=== PATIENT | female | born 1960 | race American Indian/Alaskan Native ===

== ENCOUNTER 2019-11-30 16:45 | Inpatient (IN) | payer MEDICARE ==
--- NOTE | 2019-11-30 16:52 | Emergency Department Report ---
ED Neuro Deficit HPI - General Chief Complaint: Neuro Symptoms/Deficit Stated Complaint: POSS CVA Time Seen by Provider: 11/30/19 16:48 Source: EMS Mode of arrival: Stretcher Limitations: Physical Limitation - Related Data Allergies/Adverse Reactions: Allergies Allergy/AdvReac Type Severity Reaction Status Date / Time No Known Allergies Allergy Unverified 11/30/19 16:46 ED Review of Systems ROS: Stated complaint: POSS CVA Other details as noted in HPI ED Past Medical Hx - Past Medical History Previous Medical History?: Yes Hx Hypertension: Yes Hx CVA: Yes - Surgical History Past Surgical History?: Yes Additional Surgical History: Brain surgery - Social History Smoking Status: Never Smoker ED Neuro Physical Exam - General Limitations: Physical Limitation Critical care attestation.: If time is entered above; I have spent that time in minutes in the direct care of this critically ill patient, excluding procedure time. ED Disposition Condition: Stable
--- NOTE | 2019-11-30 17:01 | Consultation ---
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 Unclear LKW as she says she was normal last night, but she is aphasic, and EMS says it was 1500 per family. New deficits reportedly left sided. She has large left frontoparietal stroke which appears chronic, as well as a right frontal lobe stroke. Differential could include recrudescence of prior stroke. seizure or new stroke Given unclear timing of onset, conflicting report from patient vs family will forego tPA and obtain CTA head and neck to rule out LVO, as she does have history of peralta peralta which could cause bilateral ischemia Metrics: Last Known Well: Unknown [facility] Notification Time: 11/30/2019 16:37:40 Arrival Time: 11/30/2019 16:45:00 Stamp Time: 11/30/2019 16:38:15 Time First Login Attempt: 11/30/2019 16:42:15 Video Start Time: 11/30/2019 16:44:27 Symptoms: aphasia NIHSS Start Assessment Time: 11/30/2019 16:56:54 Patient is not a candidate for tPA. Video End Time: 11/30/2019 17:06:32 CT head showed no acute hemorrhage or acute core infarct. Lower Likelihood of Large Vessel Occlusion but Following Stat Studies are Recommended CTA Head and Neck. ED Physician notified of diagnostic impression and management plan on 11/30/2019 17:30:26 Our recommendations are outlined below. Recommendations: Activate Stroke Protocol Admission/Order Set Stroke/Telemetry Floor Neuro Checks Bedside Swallow Eval DVT Prophylaxis IV Fluids, Normal Saline Head of Bed Below 30 Degrees Euglycemia and Avoid Hyperthermia (PRN Acetaminophen) Antiplatelet Therapy Recommended No tPA given ? timing Obtain CTA head and neck to rule out LVO Sign Out: Discussed with Emergency Department Provider History of Present Illness: Patient is a 59 year old Female. Patient was brought by EMS for symptoms of aphasia hx Peralta Peralta with prior stroke on aspirin and residual aphasia/right sided deficits, who presents per EMS last known well at 1500 per family.. She cannot tell me her deficits but says she was last normal "last night" and cannot say what her new problems are. She says her speech is chronic. She visibly has some left facial droop and left leg weakness which are reportedly new. She denies being on blood thinners but history unreliable as she is aphasic and no family present CT head showed no acute hemorrhage or acute core infarct. There is no history of hemorrhagic complications or intracranial hemorrhage. There is no history of Recent Anticoagulants. There is no history of recent major surgery. There is no history of recent stroke. Examination: 1A: Level of Consciousness - Alert; keenly responsive + 0 1B: Ask Month and Age - Both Questions Right + 0 1C: Blink Eyes & Squeeze Hands - Performs Both Tasks + 0 2: Test Horizontal Extraocular Movements - Normal + 0 3: Test Visual Mack - No Visual Loss + 0 4: Test Facial Palsy (Use Grimace if Obtunded) - Partial paralysis (lower face) + 2 5A: Test Left Arm Motor Drift - No Drift for 10 Seconds + 0 5B: Test Right Arm Motor Drift - No Drift for 10 Seconds + 0 6A: Test Left Leg Motor Drift - Drift, hits bed + 2 6B: Test Right Leg Motor Drift - No Drift for 5 Seconds + 0 7: Test Limb Ataxia (FNF/Heel-Schroeder) - No Ataxia + 0 8: Test Sensation - Normal; No sensory loss + 0 9: Test Language/Aphasia - Severe Aphasia: Fragmentary Expression, Inference Needed, Cannot Identify Materials + 2 10: Test Dysarthria - Mild-Moderate Dysarthria: Slurring but can be understood + 1 11: Test Extinction/Inattention - No abnormality + 0 NIHSS Score: 7 Patient was informed the Neurology Consult would happen via TeleHealth consult by way of interactive audio and video telecommunications and consented to receiving care in this manner. Due to the immediate potential for life-threatening deterioration due to underlying acute neurologic illness, I spent 35 minutes providing critical care. This time includes time for face to face visit via telemedicine, review of medical records, imaging studies and discussion of findings with providers, the patient and/or family. Dr Isidro Roe [facility] Case [id number] Medications and Allergies Allergies Allergy/AdvReac Type Severity Reaction Status Date / Time No Known Allergies Allergy Unverified 11/30/19 16:46 Home Medications Medication Instructions Recorded Confirmed Last Taken Type Aspirin 81 mg PO DAILY 11/30/19 11/30/19 Unknown History Keppra 1,000 mg PO BID 11/30/19 11/30/19 Unknown History amLODIPine 10 mg PO DAILY 11/30/19 11/30/19 Unknown History
--- NOTE | 2019-11-30 17:24 | Cat Scan Report ---
CT head/brain wo con INDICATION / CLINICAL INFORMATION: 59 years Female; MAIN: CODE STROKE #[id number] RT SIDE FACIAL DROOP LEFT SIDE WEAKNESS HX OF C VA W/SURG.. TECHNIQUE: Routine CT head without contrast. All CT scans at this location are performed using CT dos e reduction for ALARA by means of automated exposure control. COMPARISON: None. FINDINGS: BRAIN / INTRACRANIAL CONTENTS: Multiple areas of branch infarcts seen in the left cerebral hemisphere , predominantly involving the parietal lobe, although some component of frontal lobe involvement is s uggested. There may be minimal involvement in the right frontal lobe as well. It would be difficult t o evaluate for small areas of salo-infarct ischemia without diffusion imaging by MRI. Craniotomy site seen in the left and intraparietal region. Please clinically correlate. Ossification is seen along the dura in the lateral aspect of the middle cranial fossa regions, which should be of no clinical significance. Mild hyperostosis frontalis interna noted as well. Otherwise, no acute hemorrhage, mass effect, midline shift, hydrocephalus, or acute, large territoria l infarct. Mild cerebral atrophy. There are areas of decreased attenuation in the white matter of the cerebral hemispheres. These are n onspecific findings and may be related to microangiopathy (hypertension, diabetes, atherosclerosis), given the patient's age. It might be difficult to evaluate for small areas of ischemia without diffus ion imaging by MRI. CRANIOCERVICAL JUNCTION: No significant abnormality. ORBITS: No significant abnormality of visualized orbits. SINUSES / MASTOIDS: No significant abnormality the visualized paranasal sinuses or mastoid air cells. ADDITIONAL FINDINGS: No significant atherosclerotic disease appreciated. IMPRESSION: 1. No focal mass, hemorrhage, hydrocephalus, or acute, large territorial infarct. 2. Multiple old infarcts identified as described above. It would be difficult to evaluate for small a reas of salo-infarct ischemia without comparison of prior study or diffusion imaging by MRI. Follow-u p as clinically warranted. This exam was performed as part of a code stroke protocol. The exam was completed on 11/30/2019 4:02 P M central standard time. The exam was reviewed at 4:[address] Lucas was notified at 4:19 PM. Signer Name: Isidoro Cole MD, III Signed: 11/30/2019 5:19 PM Workstation Name: [id number]
--- NOTE | 2019-11-30 17:53 | Emergency Department Report ---
ED Neuro Deficit HPI - General Chief Complaint: Neuro Symptoms/Deficit Stated Complaint: POSS CVA Time Seen by Provider: 11/30/19 16:48 Source: EMS Mode of arrival: Stretcher Limitations: Physical Limitation - History of Present Illness Initial Comments: Patient is 59 years old female with history of previous stroke with right sided weakness, history of Moyamoya disease who presents with stroke symptoms. Unclear last unknown time. Patient stated that she was normal last night, however EMS says it was 1500 per family. New deficits reportedly left sided. Upon arrival to the ER patient is alert, oriented x3 no acute distress. Patient has a left lower extremity weakness and dysarthria. Stroke protocol immediately initiated and patient moved to CT for emergent CT brain. Stroke telemetry neurology immediately consulted and patient examined by Dr. Roe. Given the unknown time of onset Dr. Roe stated that patient is not a TPA candidate and advised to do a stat CTA neck and brain. - Related Data Home Medications: Home Medications Medication Instructions Recorded Confirmed Last Taken Aspirin 81 mg PO DAILY 11/30/19 11/30/19 Unknown Keppra 1,000 mg PO BID 11/30/19 11/30/19 Unknown amLODIPine 10 mg PO DAILY 11/30/19 11/30/19 Unknown Allergies/Adverse Reactions: Allergies Allergy/AdvReac Type Severity Reaction Status Date / Time No Known Allergies Allergy Unverified 11/30/19 16:46 ED Review of Systems ROS: Stated complaint: POSS CVA Other details as noted in HPI Comment: All other systems reviewed and negative Constitutional: denies: chills, fever Respiratory: denies: cough, shortness of breath Cardiovascular: denies: chest pain Gastrointestinal: denies: abdominal pain, nausea Musculoskeletal: denies: back pain Neurological: weakness. denies: headache ED Past Medical Hx - Past Medical History Previous Medical History?: Yes Hx Hypertension: Yes Hx CVA: Yes - Surgical History Past Surgical History?: Yes Additional Surgical History: Brain surgery - Social History Smoking Status: Never Smoker - Medications Home Medications: Home Medications Medication Instructions Recorded Confirmed Last Taken Type Aspirin 81 mg PO DAILY 11/30/19 11/30/19 Unknown History Keppra 1,000 mg PO BID 11/30/19 11/30/19 Unknown History amLODIPine 10 mg PO DAILY 11/30/19 11/30/19 Unknown History ED Neuro Physical Exam - General Limitations: Physical Limitation General appearance: alert, in no apparent distress Suspected Stroke: Yes - Head Head exam: Present: atraumatic, normocephalic, normal inspection - Eye Eye exam: Present: normal appearance, PERRL - ENT ENT exam: Present: normal exam, normal orophraynx, mucous membranes moist - Neck Neck exam: Present: normal inspection, full ROM. Absent: tenderness, meningismus, lymphadenopathy, thyromegaly - Respiratory Respiratory exam: Present: normal lung sounds bilaterally - Cardiovascular Cardiovascular Exam: Present: tachycardia - GI/Abdominal GI/Abdominal exam: Present: soft, normal bowel sounds. Absent: distended, tenderness, guarding, rebound, rigid, organomegaly, mass, bruit, pulsatile mass, hernia - Extremities Exam Extremities exam: Present: normal inspection, full ROM, normal capillary refill. Absent: tenderness, pedal edema, calf tenderness - Back Exam Back exam: Present: normal inspection, full ROM. Absent: CVA tenderness (R), CVA tenderness (L) - Neurological Exam Neurological exam: Present: alert, oriented X3, CN II-XII intact - NIHSS Assessment Interval: Baseline 1a. Level of Consciousness: alert/keenly responsive 1b. LOC Questions: answers both correctly 1c. LOC Commands: performs tasks correctly 2. Best Gaze: normal 3. Visual: no visual loss 4. Facial Palsy: minor paralysis 5b. Motor Arm Right: no drift 5a. Motor Arm Left: no drift 6a. Motor Leg Left: drift 6b. Motor Leg Right: no drift 7. Limb Ataxia: absent 8. Sensory: normal 9. Best Language: severe aphasia 10. Dysarthria: mild/moderate dysarthria 11. Extinction/Inattention: no abnormality Total Score: 5 Stroke Severity: Moderate Stroke - Psychiatric Psychiatric exam: Present: normal mood - Skin Skin exam: Present: warm, intact, normal color ED Course Vital Signs 11/30/19 17:20 Temperature 98.2 F Pulse Rate 111 H Respiratory 16 Rate Blood Pressure 133/68 [Left] O2 Sat by Pulse 100 Oximetry - Lab Data Result diagrams: 11/30/19 17:21 11/30/19 17:21 Lab Results 11/30/19 11/30/19 11/30/19 Range/Units 17:21 17:21 17:21 WBC 7.2 (4.5-11.0) K/mm3 RBC 2.45 L (3.65-5.03) M/mm3 Hgb 4.7 L* (10.1-14.3) gm/dl Hct 15.4 L* (30.3-42.9) % MCV 63 L (79-97) fl MCH 19 L (28-32) pg MCHC 30 (30-34) % RDW 26.6 H (13.2-15.2) % Plt Count 455 H (140-440) K/mm3 PT 14.4 (12.2-14.9) Sec. INR 1.11 (0.87-1.13) APTT 28.9 (24.2-36.6) Sec. Thrombin Time (15.1-19.6) Sec. Sodium 136 L (137-145) mmol/L Potassium 3.7 (3.6-5.0) mmol/L Chloride 101.5 (98-107) mmol/L Carbon Dioxide 20 L (22-30) mmol/L Anion Gap 18 mmol/L BUN 15 (7-17) mg/dL Creatinine 0.8 (0.7-1.2) mg/dL Estimated GFR > 60 ml/min BUN/Creatinine Ratio 19 % Glucose 140 H (65-100) mg/dL Calcium 8.7 (8.4-10.2) mg/dL Troponin T 0.013 (0.00-0.029) ng/mL 11/30/19 Range/Units 17:21 WBC (4.5-11.0) K/mm3 RBC (3.65-5.03) M/mm3 Hgb (10.1-14.3) gm/dl Hct (30.3-42.9) % MCV (79-97) fl MCH (28-32) pg MCHC (30-34) % RDW (13.2-15.2) % Plt Count (140-440) K/mm3 PT (12.2-14.9) Sec. INR (0.87-1.13) APTT (24.2-36.6) Sec. Thrombin Time 14.5 L (15.1-19.6) Sec. Sodium (137-145) mmol/L Potassium (3.6-5.0) mmol/L Chloride (98-107) mmol/L Carbon Dioxide (22-30) mmol/L Anion Gap mmol/L BUN (7-17) mg/dL Creatinine (0.7-1.2) mg/dL Estimated GFR ml/min BUN/Creatinine Ratio % Glucose (65-100) mg/dL Calcium (8.4-10.2) mg/dL Troponin T (0.00-0.029) ng/mL - EKG Data -: EKG Interpreted by Me EKG shows normal: sinus rhythm Rate: tachycardia - Radiology Data Radiology results: report reviewed - Medical Decision Making Patient is 59 years old female with history of previous stroke with right sided weakness, history of Moyamoya disease who presents with stroke symptoms. Unclear last unknown time. Patient stated that she was normal last night, however EMS says it was 1500 per family. New deficits reportedly left sided. Upon arrival to the ER patient is alert, oriented x3 no acute distress. Patient has a left lower extremity weakness and dysarthria. Stroke protocol immediately initiated and patient moved to CT for emergent CT brain. Stroke telemetry neurology immediately consulted and patient examined by Dr. Roe. Given the unknown time of onset Dr. Roe stated that patient is not a TPA candidate and advised to do a stat CTA neck and brain. Patient found to have a hemoglobin of 4.5. Patient denied any hematemesis or hematochezia. Rectal exam revealed a positive melena and a positive stool for occult blood. I discussed the patient with Dr. Chava Dobbs, manager service desk. He advised to keep the patient on clear liquid for preparation tomorrow and endoscopy and colonoscopy on Monday. Patient received a 1 units of PRBC. I discussed the patient with Dr. Amezcua, he agreed to admit the patient to medical service for further management. Critical Care Time: Yes Critical care time in (mins) excluding proc time.: 45 Critical care attestation.: If time is entered above; I have spent that time in minutes in the direct care of this critically ill patient, excluding procedure time. ED Disposition Clinical Impression: CVA (cerebral vascular accident), Gastrointestinal bleeding Disposition: OP ADMIT IP TO THIS HOSP Is pt being admited?: Yes Condition: Stable Referrals: PRIMARY CARE, [Primary Care Provider] - 3-5 Days
[2019-11-30 18:00] LABS: BUN/Creatinine Ratio 19; Blood Urea Nitrogen 15 mg/dL (7-17); Calcium 8.7 mg/dL (8.4-10.2); Hemolysis Index 0
[2019-11-30 18:02] LABS: Partial Thromboplastin Time 28.9 Sec. (24.2-36.6)
[2019-11-30 18:10] LABS: INR 1.11 (0.87-1.13)
[2019-11-30 18:11] LABS: Mean Corpuscular HGB Conc 30 % (30-34); Platelet Count 455 K/mm3 (140-440); Red Blood Count 2.45 M/mm3 (3.65-5.03)
[2019-11-30 18:15] LABS: Hematocrit 15.4 % (30.3-42.9); Hemoglobin 4.7 gm/dl (10.1-14.3); Mean Corpuscular Volume 63 fl (79-97); Red Cell Distribution Width 26.6 % (13.2-15.2)
[2019-11-30] MEDS ORDERED: SODIUM CHLORIDE 0.9% 500 ML 500 ML IV ONE (18:23)
--- NOTE | 2019-11-30 18:43 | Cat Scan Report ---
CT angio head INDICATION / CLINICAL INFORMATION: 59 years Female; MAIN: sroke, RT side drooping and LT side weakness, multiple CVA, [id number] 100ml. TECHNIQUE: Thin cut axial images obtained through the head during IV bolus contrast administration. S agittal, coronal, and 3 plane MIP reconstructions performed by the technologist. NASCET type criteria used evaluate stenoses. Automated exposure control utilized for radiation reduction purposes. COMPARISON: None available. FINDINGS: INTERNAL CAROTID ARTERIES: There appears to be narrowing of the distal internal carotid arteries bila terally to near complete occlusion in the bifurcation regions to be consistent with a moyamoya patter n or perhaps vasculitis. 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 Note, the proximal and mid basilar artery persists, but is diminutive in size without significant narrowing. There is a focal area of short segment narrowing in the right vertebral artery just distal to the arnaldo gin of the right PICA. DISTAL BRANCHES: There is significant narrowing at the origin of the P1 segment on the left. Blood fl ow to the left [employer] appears to be mildly diminished when compared with the right. As noted above, there is poor visualization of the proximal M1 and A1 segments of both middle and ant erior cerebral arteries, respectively. Areas of narrowing are seen throughout the A1 and M1 segments. There are areas of narrowing seen in more distal MCA trifurcation branches bilaterally, almost having a vasculitic type appearance. There is some degree of narrowing in the proximal A2 segments bilaterally as well. ANEURYSM: None identified. ADDITIONAL FINDINGS: Remainder of the surrounding soft tissues are grossly normal. IMPRESSION: Multiple abnormalities identified as described above. Vasculitic or moyamoya type entity certainly co uld be considered. Diffusion imaging by MRI may best demonstrate areas of ischemia, if needed. Signer Name: Isidoro Cole MD, III Signed: 11/30/2019 6:38 PM Workstation Name: [id number]
--- NOTE | 2019-11-30 18:55 | Cat Scan Report ---
CT angio neck INDICATION / CLINICAL INFORMATION: 59 years Female; MAIN: stroke, RT side drooping and LT side weakness, multiple CVA, [id number] 100ml. TECHNIQUE: Thin cut axial images obtained through the head during IV bolus contrast administration. S agittal, coronal, and 3 plane MIP reconstructions performed by the technologist. NASCET type criteria used evaluate stenoses. All CT scans at this location are performed using CT dose reduction for ALAR A by means of automated exposure control. COMPARISON: None available. FINDINGS: ARCH: Bovine arch configuration noted. CAROTID ARTERIES: There is smooth like narrowing throughout a fairly long segment of the mid to dista l, extracranial right internal carotid artery, which has a vasculitis type appearance. The left inter nal carotid artery is widely patent throughout, as are the common carotid arteries. VERTEBRAL ARTERIES: Codominant vertebral system seen. The vertebral arteries are diminutive in size, which may be developmental and related to the persistent trigeminal artery seen intracranially. There are areas of smooth like narrowing seen in the nondominant left vertebral artery, again raising the question of vasculitis. ADDITIONAL FINDINGS: Small nodules seen in the right thyroid lobe. This findings not significant by s ize criteria. The thyroid gland is mildly enlarged. Mild mucosal thickening seen in the ethmoids. Prominent soft tissue is seen in the roof the nasopharynx, presumably related to reactive adenoidal t issue. Please clinically correlate. [place] tonsils are prominent as well. IMPRESSION: Areas of narrowing identified as described above. Would question arteritis/vasculitis. Signer Name: Isidoro Cole MD, III Signed: 11/30/2019 6:51 PM Workstation Name: [id number]
[2019-11-30 18:59] LABS: Anisocytosis 3+; Dimorphic RBC Yes; Hypochromasia 2+; Schistocytes 1+; Total Cells Counted 100
[2019-11-30] MEDS ORDERED: PANTOPRAZOLE 80 MG in SODIUM CHLORIDE 0.9% 100 ML IV SCH (19:00)
[2019-11-30] MEDS ORDERED: ONDANSETRON 4 MG/2 ML INJ IV PRN (19:19)
[2019-11-30] MEDS ORDERED: MAGNESIUM HYDROXIDE (MOM) ORAL LIQD UDC PO PRN (19:19)
[2019-11-30] MEDS ORDERED: PROMETHAZINE 25 MG RECT SUPP PR PRN (19:19)
[2019-11-30] MEDS ORDERED: ACETAMINOPHEN 325 MG TAB PO PRN (19:19)
[2019-11-30] MEDS ORDERED: METOCLOPRAMIDE 10 MG TAB PO PRN (19:19)
--- NOTE | 2019-11-30 19:19 | History and Physical Report ---
History of Present Illness Chief complaint: I feel we, left side History of present illness: 59 YO Female with Obesity, Moyamoya Disease, HTN, Seizure Disorder, CVA presents to ED for evaluation. Patient is lethargic at the time of exam and provides limited history. Patient history taken from EMS, ED staff and from family members. As per family the patient was in her usual state of health around bedtime at 2100 hrs. overnight. Patient reported left-sided weakness today and the family reports slurred speech. EMS was notified and upon arrival the patient was found to have neurologic deficit. A code stroke was called and the patient was transported to [facility] for further evaluation and care. Patient seen and evaluated in the emergency department. Lab and imaging studies reviewed. Tele-neurology was consulted. Patient was found to have brain findings consistent with moyamoya disease, however patient initiated on stroke protocol and admitted to [facility] for further evaluation and care due to increased risk for neurologic decompensation. Patient was also found to have a severe anemia with hemoglobin around 4. Patient initiated on GI bleed protocol. GI team consulted in ED. Patient initiated on IV PPI therapy and treated with packed red blood cell transfusion. No prior admission for review. All medication listed at the time of admission has been reconciled. No further history obtainable. Patient is lethargic but has positive gag reflex and is able to protect her airway. Past History Past Medical History: seizures, stroke, other (See HPI) Past Surgical History: Other (Brain surgery) Social history: single, lives with family. denies: smoking, alcohol abuse, prescription drug abuse Family history: hypertension Medications and Allergies Allergies Allergy/AdvReac Type Severity Reaction Status Date / Time No Known Allergies Allergy Unverified 11/30/19 16:46 Home Medications Medication Instructions Recorded Confirmed Last Taken Type Aspirin 81 mg PO DAILY 11/30/19 11/30/19 Unknown History Keppra 1,000 mg PO BID 11/30/19 11/30/19 Unknown History amLODIPine 10 mg PO DAILY 11/30/19 11/30/19 Unknown History Active Meds: Active Medications Pantoprazole Sodium 80 mg/ (Sodium Chloride) 100 mls @ 10 mls/hr IV DIRECT THUY Review of Systems ROS unobtainable: due to mental status Exam - Constitutional Vitals: Temp Pulse Resp BP Pulse Ox 98.2 F 111 H 16 133/68 100 11/30/19 17:20 11/30/19 17:20 11/30/19 17:20 11/30/19 17:20 11/30/19 17:20 General appearance: Present: mild distress - EENT Eyes: Present: PERRL (Conjunctival pallor) ENT: hearing intact, clear oral mucosa - Neck Neck: Present: supple, normal ROM - Respiratory Respiratory effort: normal Respiratory: bilateral: CTA - Cardiovascular Heart Sounds: Present: S1 & S2. Absent: rub, click - Extremities Extremities: pulses symmetrical, No edema Peripheral Pulses: within normal limits - Abdominal General gastrointestinal: Present: soft, non-tender, non-distended, normal bowel sounds Female genitourinary: Present: normal - Integumentary Integumentary: Present: clear, warm, dry - Musculoskeletal Musculoskeletal: gait normal, strength equal bilaterally - Psychiatric Psychiatric: no appropriate mood/affect, no intact judgment & insight, no memory intact - Neurologic Neurologic: CNII-XII intact, moves all extremities Results - Labs CBC & Chem 7: 11/30/19 17:21 11/30/19 17:21 Labs: Abnormal lab results 11/30/19 11/30/1918 Range/Units 17:21 17:21 17:21 RBC 2.45 L (3.65-5.03) M/mm3 Hgb 4.7 L* (10.1-14.3) gm/dl Hct 15.4 L* (30.3-42.9) % MCV 63 L (79-97) fl MCH 19 L (28-32) pg RDW 26.6 H (13.2-15.2) % Plt Count 455 H (140-440) K/mm3 Seg Neuts % (Manual) 77.0 H (40.0-70.0) % Lymphocytes # (Manual) 1.1 L (1.2-5.4) K/mm3 Thrombin Time 14.5 L (15.1-19.6) Sec. Sodium 136 L (137-145) mmol/L Carbon Dioxide 20 L (22-30) mmol/L Glucose 140 H (65-100) mg/dL Crossmatch 11/30/19 Range/Units 18:36 RBC (3.65-5.03) M/mm3 Hgb (10.1-14.3) gm/dl Hct (30.3-42.9) % MCV (79-97) fl MCH (28-32) pg RDW (13.2-15.2) % Plt Count (140-440) K/mm3 Seg Neuts % (Manual) (40.0-70.0) % Lymphocytes # (Manual) (1.2-5.4) K/mm3 Thrombin Time (15.1-19.6) Sec. Sodium (137-145) mmol/L Carbon Dioxide (22-30) mmol/L Glucose (65-100) mg/dL Crossmatch See Detail Assessment and Plan - Patient Problems (1) Moyamoya disease Current Visit: Yes Status: Acute Plan to address problem: CT head, neuro check, supportive care, patient care plan discussed with Dr. Alonso at [place] regarding patient with Calderon Calderon disease. Patient is well-known to the service and has been seen by them in the stroke clinic within the past 30 days. She had an STA-ECA bypass last year, but has been having recurrent strokes. At last visit she had right sided deficits. Patient had anemia at the time of her last stroke and was attributed to dehydration. Neurology should follow up, and if she does have a new stroke may need to have a second EC-IC bypass as an outpatient. She already has follow up appointments with neurology and neurosurgery. Can contact Dr. Alonso's team if needed Original Note: (2) CVA (cerebral vascular accident) Current Visit: Yes Status: Acute Plan to address problem: Stroke protocol: CT head, CTA head and neck, neuro check, lipid panel, neurology consulted in ED, tele-neurology consulted, physical therapy consulted Occupational Therapy consulted, echocardiogram., Carotid Doppler. (3) Gastrointestinal bleeding Current Visit: Yes Status: Acute Qualifiers: GI bleed type/associated pathology: unspecified gastrointestinal hemorrhage type Qualified Code(s): K92.2 - Gastrointestinal hemorrhage, unspecified Plan to address problem: GI team consulted in ED, patient admitted to [facility], patient initiated on IV PPI therapy, Blood cell transfusion, supportive care. (4) Seizure disorder Current Visit: Yes Status: Acute Plan to address problem: Continue Keppra therapy, neuro check, seizure precaution, supportive care (5) Hypertension Current Visit: Yes Status: Acute Qualifiers: Hypertension type: essential hypertension Qualified Code(s): I10 - Essential (primary) hypertension Plan to address problem: Permissive hypertension overnight, monitor blood pressure every shift. (6) DVT prophylaxis Current Visit: Yes Status: Acute Plan to address problem: Hold anticoagulation for now, SCDs to bilateral lower extremities while in bed
[2019-11-30] MEDS ORDERED: SODIUM CHLORIDE 0.9% 500 ML 500 ML ONE (20:30)
[2019-11-30] MEDS ORDERED: PANTOPRAZOLE 40 MG INJ IV SCH (22:00)
[2019-11-30] MEDS ORDERED: levETIRAcetam 500 MG TAB PO ONE (22:27)
[2019-11-30] MEDS: levETIRAcetam 500 MG TAB PO SCH (22:28)
[2019-12-01] MEDS ORDERED: NON-FORMULARY EACH (Aspirin 81 MG) PO SCH (10:00)
[2019-12-01] MEDS ORDERED: ASPIRIN 81 MG TAB CHEW PO SCH (11:00)
[2019-12-01] MEDS: levETIRAcetam 500 MG TAB PO SCH ×2 (11:00→21:23)
[2019-12-01] MEDS: amLODIPine 10 MG TAB PO SCH (11:05)
[2019-12-01 11:12] LABS: Mean Corpuscular HGB Conc 33 % (30-34); Platelet Count 413 K/mm3 (140-440); Red Blood Count 2.69 M/mm3 (3.65-5.03)
[2019-12-01 11:18] LABS: Hematocrit 18.2 % (30.3-42.9); Mean Corpuscular Volume 68 fl (79-97); Red Cell Distribution Width 31.3 % (13.2-15.2)
--- NOTE | 2019-12-01 13:35 | Gastroenterology Consultation ---
History of Present Illness - Reason for Consult Consult date: 12/01/19 Acute Blood Loss Anemia Requesting physician: CANDICE GARCIA - History of Present Illness The patient is mildly dysarthric due to her underlying Neuro disease (see notes) but is able to nod her head yes/no, and follows all commands. The chart is reviewed, and she was admitted with weakness, r/o (new) CVA, but also severe symptomatic anemia. The patient states she has had anemia for some time (also noted at [place] per the admit H/P). She had an EGD/colon last year at [facility] by her report, and "nothing was found." It is not clear if they performed a capsule endoscopy. Her stools were dark in the ER last night, but she has had no BM today, and no hematemesis. She is eating a regular diet without N/V/abdominal pain. She does not take chronic iron, but does take daily ASA. She denies OTC NSAIDs. She has no family hx as far as I can tell, of GI bleeding disorders or cancer. She says she is still having her cycles (despite her age). Past History Past Medical History: seizures, stroke, other (Moyamoya Disease) Past Surgical History: Other (Brain surgery/Vascular bypass) Social history: single, lives with family. denies: smoking, alcohol abuse, prescription drug abuse Family history: hypertension Medications and Allergies Allergies Allergy/AdvReac Type Severity Reaction Status Date / Time No Known Allergies Allergy Unverified 11/30/19 16:46 Home Medications Medication Instructions Recorded Confirmed Last Taken Type Aspirin 81 mg PO DAILY 11/30/19 11/30/19 Unknown History Keppra 1,000 mg PO BID 11/30/19 11/30/19 Unknown History amLODIPine 10 mg PO DAILY 11/30/19 11/30/19 Unknown History Active Meds: Active Medications Acetaminophen (Tylenol) 650 mg PO Q4H PRN PRN Reason: Pain, Mild (1-3) Amlodipine Besylate (Amlodipine) 10 mg PO DAILY [facility] Last Admin: 12/01/19 11:05 Dose: 10 mg Documented by: Atorvastatin Calcium (Lipitor) 40 mg PO QHS [facility] Last Admin: 11/30/19 22:28 Dose: 40 mg Documented by: Bisacodyl (Dulcolax) 10 mg DC QDAY PRN PRN Reason: Constipation Sodium Chloride (Nacl 0.9% 500 Ml) 500 mls @ 0 mls/hr IV ONCE ONE Stop: 12/01/19 14:01 Levetiracetam (Keppra) 1,000 mg PO BID THUY Last Admin: 12/01/19 11:00 Dose: 1,000 mg Documented by: Magnesium Hydroxide (Milk Of Magnesia) 30 ml PO Q4H PRN PRN Reason: Constipation Metoclopramide HCl (Reglan) 10 mg PO Q6H PRN PRN Reason: Nausea And Vomiting Ondansetron HCl (Zofran) 4 mg IV Q8H PRN PRN Reason: Nausea And Vomiting Pantoprazole Sodium (Protonix) 40 mg PO QDAY THUY Promethazine HCl (Phenergan) 25 mg DC Q6H PRN PRN Reason: Nausea And Vomiting Sodium Chloride (Sodium Chloride Flush Syringe 10 Ml) 10 ml IV PRN PRN PRN Reason: LINE FLUSH I HAVE REVIEWED AND RECONCILED THE PATIENT'S MEDICATIONS Review of Systems - Review of Systems All systems: negative (as noted in the HPI.) Exam - Constitutional Vital Signs: Temp Pulse Resp BP Pulse Ox 98.2 F 87 18 127/60 97 12/01/19 12:00 12/01/19 11:05 12/01/19 03:01 12/01/19 11:05 12/01/19 09:15 General appearance: no acute distress - EENT Eyes: PERRL, EOM intact ENT: hearing intact, clear oral mucosa, no thrush - Neck Neck: supple, normal ROM - Respiratory Respiratory effort: normal Respiratory: bilateral: CTA - Cardiovascular Rhythm: regular Heart Sounds: Present: S1 & S2 Extremities: no ischemia Extremity abnormal: edema (1+ dependent edema) - Gastrointestinal General gastrointestinal: Present: soft, non-tender, non-distended Rectal Exam: other (Heme (+) stool) - Integumentary Integumentary: Present: clear, warm, dry - Neurologic Neurological: oriented to person, other (Difficulty with words/aphasia, but follows all commands) - Labs CBC & Chem 7: 12/01/19 10:31 11/30/19 17:21 Lab Results: Laboratory Results - last 24 hr 11/30/19 11/30/19 11/30/19 17:21 17:21 17:21 WBC 7.2 RBC 2.45 L Hgb 4.7 L* Hct 15.4 L* MCV 63 L MCH 19 L MCHC 30 RDW 26.6 H Plt Count 455 H Add Manual Diff Complete Total Counted 100 Seg Neuts % (Manual) 77.0 H Band Neutrophils % 0 Lymphocytes % (Manual) 15.0 Reactive Lymphs % (Man) 0 Monocytes % (Manual) 6.0 Eosinophils % (Manual) 1.0 Basophils % (Manual) 1.0 Metamyelocytes % 0 Myelocytes % 0 Promyelocytes % 0 Blast Cells % 0 Nucleated RBC % Not Reportable Seg Neutrophils # Man 5.5 Band Neutrophils # 0.0 Lymphocytes # (Manual) 1.1 L Abs React Lymphs (Man) 0.0 Monocytes # (Manual) 0.4 Eosinophils # (Manual) 0.1 Basophils # (Manual) 0.1 Metamyelocytes # 0.0 Myelocytes # 0.0 Promyelocytes # 0.0 Blast Cells # 0.0 WBC Morphology Not Reportable Hypersegmented Neuts Not Reportable Hyposegmented Neuts Not Reportable Hypogranular Neuts Not Reportable Smudge Cells Not Reportable Toxic Granulation Not Reportable Toxic Vacuolation Not Reportable Dohle Bodies Not Reportable Pelger-Huet Anomaly Not Reportable Casa Rods Not Reportable Platelet Estimate Not Reportable Clumped Platelets Not Reportable Plt Clumps, EDTA Not Reportable Large Platelets Not Reportable Giant Platelets Not Reportable Platelet Satelliting Not Reportable Plt Morphology Comment Not Reportable RBC Morphology Not Reportable Dimorphic RBCs Yes Polychromasia Not Reportable Hypochromasia 2+ Poikilocytosis Not Reportable Anisocytosis 3+ Microcytosis 2+ Macrocytosis Not Reportable Spherocytes Not Reportable Pappenheimer Bodies Not Reportable Sickle Cells Not Reportable Target Cells Not Reportable Tear Drop Cells Not Reportable Ovalocytes Not Reportable Helmet Cells Not Reportable Ansari-Loyal[place] Bodies Not Reportable Harris Rings Not Reportable Mcdonald Cells Not Reportable Bite Cells Not Reportable Crenated Cell Not Reportable Elliptocytes Not Reportable Acanthocytes (Spur) Not Reportable Rouleaux Not Reportable Hemoglobin C Crystals Not Reportable Schistocytes 1+ Malaria parasites Not Reportable [place] Bodies Not Reportable Hem Pathologist Commnt No PT 14.4 INR 1.11 APTT 28.9 Thrombin Time Sodium 136 L Potassium 3.7 Chloride 101.5 Carbon Dioxide 20 L Anion Gap 18 BUN 15 Creatinine 0.8 Estimated GFR > 60 BUN/Creatinine Ratio 19 Glucose 140 H Calcium 8.7 Iron Troponin T 0.013 Blood Type Antibody Screen Crossmatch 11/30/19 11/30/19 11/30/19 17:21 17:21 18:36 WBC RBC Hgb Hct MCV MCH MCHC RDW Plt Count Add Manual Diff Total Counted Seg Neuts % (Manual) Band Neutrophils % Lymphocytes % (Manual) Reactive Lymphs % (Man) Monocytes % (Manual) Eosinophils % (Manual) Basophils % (Manual) Metamyelocytes % Myelocytes % Promyelocytes % Blast Cells % Nucleated RBC % Seg Neutrophils # Man Band Neutrophils # Lymphocytes # (Manual) Abs React Lymphs (Man) Monocytes # (Manual) Eosinophils # (Manual) Basophils # (Manual) Metamyelocytes # Myelocytes # Promyelocytes # Blast Cells # WBC Morphology Hypersegmented Neuts Hyposegmented Neuts Hypogranular Neuts Smudge Cells Toxic Granulation Toxic Vacuolation Dohle Bodies Pelger-Huet Anomaly Casa Rods Platelet Estimate Clumped Platelets Plt Clumps, EDTA Large Platelets Giant Platelets Platelet Satelliting Plt Morphology Comment RBC Morphology Dimorphic RBCs Polychromasia Hypochromasia Poikilocytosis Anisocytosis Microcytosis Macrocytosis Spherocytes Pappenheimer Bodies Sickle Cells Target Cells Tear Drop Cells Ovalocytes Helmet Cells Ansari-Loyalton Bodies Harris Rings Wilfred Cells Bite Cells Crenated Cell Elliptocytes Acanthocytes (Spur) Rouleaux Hemoglobin C Crystals Schistocytes Malaria parasites [place] Bodies Hem Pathologist Commnt PT INR APTT Thrombin Time 14.5 L Sodium Potassium Chloride Carbon Dioxide Anion Gap BUN Creatinine Estimated GFR BUN/Creatinine Ratio Glucose Calcium Iron 16 L Troponin T Blood Type A POSITIVE Antibody Screen Negative Crossmatch See Detail 12/01/19 10:31 WBC 6.6 RBC 2.69 L Hgb 6.0 L Hct 18.2 L* MCV 68 L MCH 22 L MCHC 33 RDW 31.3 H Plt Count 413 Add Manual Diff Total Counted Seg Neuts % (Manual) Band Neutrophils % Lymphocytes % (Manual) Reactive Lymphs % (Man) Monocytes % (Manual) Eosinophils % (Manual) Basophils % (Manual) Metamyelocytes % Myelocytes % Promyelocytes % Blast Cells % Nucleated RBC % Seg Neutrophils # Man Band Neutrophils # Lymphocytes # (Manual) Abs React Lymphs (Man) Monocytes # (Manual) Eosinophils # (Manual) Basophils # (Manual) Metamyelocytes # Myelocytes # Promyelocytes # Blast Cells # WBC Morphology Hypersegmented Neuts Hyposegmented Neuts Hypogranular Neuts Smudge Cells Toxic Granulation Toxic Vacuolation Dohle Bodies Pelger-Huet Anomaly Casa Rods Platelet Estimate Clumped Platelets Plt Clumps, EDTA Large Platelets Giant Platelets Platelet Satelliting Plt Morphology Comment RBC Morphology Dimorphic RBCs Polychromasia Hypochromasia Poikilocytosis Anisocytosis Microcytosis Macrocytosis Spherocytes Pappenheimer Bodies Sickle Cells Target Cells Tear Drop Cells Ovalocytes Helmet Cells Ansari-Loyal[place] Bodies Harris Rings Mcdonald Cells Bite Cells Crenated Cell Elliptocytes Acanthocytes (Spur) Rouleaux Hemoglobin C Crystals Schistocytes Malaria parasites [place] Bodies Hem Pathologist Commnt PT INR APTT Thrombin Time Sodium Potassium Chloride Carbon Dioxide Anion Gap BUN Creatinine Estimated GFR BUN/Creatinine Ratio Glucose Calcium Iron Troponin T Blood Type Antibody Screen Crossmatch Assessment and Plan - Patient Problems (1) Symptomatic anemia Current Visit: Yes Status: Acute Plan to address problem: - The patient is heme (+), but normal VS, and I suspect a degree of chronicity. - Given need for long-term anticoagulation with ASA, will repeat EGD since the stool was melenic in the ER. - If records from [place] obtained, and colonoscopy negative last year, then would offer a capsule endoscopy. - Hold ASA today given persistent anemia despite transfusion, and continue protonix (PO since no gross bleeding today). - Will add MVI daily therapy.
--- NOTE | 2019-12-01 13:53 | Progress Note ---
Assessment and Plan /Gastrointestinal bleeding GI team consulted in ED, patient admitted to [facility], patient initiated on IV PPI therapy, ordered 2 units of PRBC, plan for EGd tomorrow Continue IV fluid / Moyamoya disease Follows up with Dr. Alonso at [place]. 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 Neurology consult placed, and if she does have a new stroke may need to have a second EC-IC bypass as an outpatient. She already has follow up appointments with neurology and neurosurgery. Can contact Dr. Alonso's team if needed /CVA (cerebral vascular accident), ruled out CT and CTA head and neck findings are because consistent with Moyamoya disease. Presenting symptoms most likely due to severe anemia and dehydration / Seizure disorder Continue Keppra therapy, neuro check, seizure precaution, supportive care /Morbid obesity, weight reduction diet and exercise regimen as outpatient when clinically stable / Hypertension monitor blood pressure every shift. / DVT prophylaxis Hold anticoagulation for now, SCDs to bilateral lower extremities while in bed 11/30: Completed 2 units of blood transfusion. Plan for EGD for tomorrow, continue IV fluids, to keep n.p.o. transfer to telemetry unit Brief History: 59 YO Female with Obesity, Moyamoya Disease, HTN, Seizure Disorder, CVA presents to ED for evaluation of left-sided weakness and slurred speech. EMS was notified and patient was transported to [facility] for further evaluation and care. P atient seen and evaluated in the emergency department Tele-neurology was consulted. Patient was found to have brain findings consistent with moyamoya disease, however patient admitted to [facility] for further evaluation and care due to increased risk for neurologic decompensation. Patient was also found to have a severe anemia with hemoglobin around 4. GI team consulted in ED. Patient initiated on IV PPI therapy and treated with packed red blood cell transfusion. Plan for EGD tomorrow, transfer to telemetry. Physical exam: GENERAL: well-developed morbidly obese -[place] female lying on bed appeared to be in no discomfort. HEENT: Normocephalic. Atraumatic. No conjunctival congestion or icterus. Patient has moist mucous membranes. NECK: Supple. Trachea midline. CHEST/LUNGS: Clear to auscultated bilaterally, breathing nonlabored. No wheezes crackles or rhonchi. HEART/CARDIOVASCULAR: Regular in rate and rhythm. S1 and S2 positive. ABDOMEN: Abdomen is soft, nontender. Patient has normal bowel sounds. SKIN: There is no rash. Warm and dry. NEURO: No focal motor deficit. Follows command. MUSCULOSKELETAL: No joint effusion or tenderness. EXTRIMITY: No edema, no cyanosis or clubbing. PSYCH: Cooperative. Subjective Date of service: 12/01/19 Interval history: Patient seen and examined. Medical records and medication list reviewed. No acute event overnight noted by the RN. Patient denies any chest pain or difficulty breathing. Patient is tolerating diet. No active bleeding, denies any hematemesis melena Discussed plan of care at bedside with patient. Objective - Constitutional Vitals: Vital Signs - 12hr 12/01/19 12/01/19 12/01/19 02:00 02:31 03:01 Temperature Pulse Rate 92 H 90 98 H Pulse Rate [ Right Radial] Respiratory 16 20 18 Rate Blood Pressure 142/68 142/68 133/69 O2 Sat by Pulse 99 100 100 Oximetry 12/01/19 12/01/19 12/01/19 04:35 06:00 08:00 Temperature 98.3 F Pulse Rate Pulse Rate [ 85 85 Right Radial] Respiratory Rate Blood Pressure O2 Sat by Pulse Oximetry 12/01/19 12/01/19 12/01/19 09:15 10:00 11:05 Temperature Pulse Rate 87 87 Pulse Rate [ Right Radial] Respiratory Rate Blood Pressure 127/60 O2 Sat by Pulse 97 Oximetry 12/01/19 12:00 Temperature 98.2 F Pulse Rate Pulse Rate [ Right Radial] Respiratory Rate Blood Pressure O2 Sat by Pulse Oximetry - Labs CBC & Chem 7: 12/02/19 04:18 12/02/19 04:18 Labs: Abnormal lab results 11/30/19 11/30/19 11/30/19 Range/Units 17:21 17:21 17:21 RBC 2.45 L (3.65-5.03) M/mm3 Hgb 4.7 L* (10.1-14.3) gm/dl Hct 15.4 L* (30.3-42.9) % MCV 63 L (79-97) fl MCH 19 L (28-32) pg RDW 26.6 H (13.2-15.2) % Plt Count 455 H (140-440) K/mm3 Seg Neuts % (Manual) 77.0 H (40.0-70.0) % Lymphocytes # (Manual) 1.1 L (1.2-5.4) K/mm3 Thrombin Time 14.5 L (15.1-19.6) Sec. Sodium 136 L (137-145) mmol/L Carbon Dioxide 20 L (22-30) mmol/L Glucose 140 H (65-100) mg/dL Iron (37-170) ug/dL Crossmatch 11/30/19 11/30/19 12/01/19 Range/Units 17:21 18:36 10:31 RBC 2.69 L (3.65-5.03) M/mm3 Hgb 6.0 L (10.1-14.3) gm/dl Hct 18.2 L* (30.3-42.9) % MCV 68 L (79-97) fl MCH 22 L (28-32) pg RDW 31.3 H (13.2-15.2) % Plt Count (140-440) K/mm3 Seg Neuts % (Manual) (40.0-70.0) % Lymphocytes # (Manual) (1.2-5.4) K/mm3 Thrombin Time (15.1-19.6) Sec. Sodium (137-145) mmol/L Carbon Dioxide (22-30) mmol/L Glucose (65-100) mg/dL Iron 16 L (37-170) ug/dL Crossmatch See Detail
[2019-12-01] MEDS ORDERED: SODIUM CHLORIDE 0.9% 500 ML 500 ML IV ONE (14:00)
[2019-12-01 14:13] LABS: Band Neutrophils # (Manual) 0.1 K/mm3; Basophils % (Manual) 0 % (0.0-1.8); Monocytes % (Manual) 0 % (0.0-7.3); Total Cells Counted 100
[2019-12-01 14:14] LABS: Hypochromasia 3+; Large Platelets Few
[2019-12-01 14:15] LABS: Platelet Estimate Consistent w Auto
[2019-12-01] MEDS: PANTOPRAZOLE 40 MG TAB PO SCH (14:30)
[2019-12-01] MEDS: MULTIVITAMINS,THER W-MINERALS TAB PO SCH (14:31)
--- NOTE | 2019-12-01 14:53 | Progress Note ---
Subjective Date of service: 12/01/19 Interval history: I have reviewed the case and left full note CT shows clear cut large old left MCA infarct etiology of vasculitis is in question I did read over the CTA reort and medium vessel disease is noted I have dictated full note Objective - Vital Sign Vital Signs - 12hr 12/01/19 12/01/19 12/01/19 03:01 04:17 04:31 Temperature Pulse Rate 98 H 89 88 Pulse Rate [ Right Radial] Respiratory 18 12 15 Rate Blood Pressure 133/69 118/50 O2 Sat by Pulse 100 100 100 Oximetry 12/01/19 12/01/19 12/01/19 04:35 04:45 05:00 Temperature Pulse Rate 93 H 88 Pulse Rate [ 85 Right Radial] Respiratory 14 16 Rate Blood Pressure 120/48 O2 Sat by Pulse 100 98 Oximetry 12/01/19 12/01/19 12/01/19 05:15 05:31 05:45 Temperature Pulse Rate 90 84 85 Pulse Rate [ Right Radial] Respiratory 17 15 17 Rate Blood Pressure 120/48 120/48 120/48 O2 Sat by Pulse 99 96 93 Oximetry 12/01/19 12/01/19 12/01/19 06:00 06:17 06:30 Temperature Pulse Rate 100 H 91 H 84 Pulse Rate [ 85 Right Radial] Respiratory 14 20 15 Rate Blood Pressure 116/63 116/63 116/63 O2 Sat by Pulse 99 88 96 Oximetry 12/01/19 12/01/19 12/01/19 06:46 07:00 07:16 Temperature Pulse Rate 91 H 90 92 H Pulse Rate [ Right Radial] Respiratory 18 16 12 Rate Blood Pressure 116/63 115/54 115/54 O2 Sat by Pulse 98 98 100 Oximetry 12/01/19 12/01/19 12/01/19 07:30 07:46 08:00 Temperature 98.3 F Pulse Rate 90 90 83 Pulse Rate [ Right Radial] Respiratory 19 22 14 Rate Blood Pressure 115/54 115/54 113/52 O2 Sat by Pulse 98 96 96 Oximetry 12/01/19 12/01/19 12/01/19 08:16 08:30 08:46 Temperature Pulse Rate 84 94 H 88 Pulse Rate [ Right Radial] Respiratory 13 13 17 Rate Blood Pressure 113/52 113/52 113/52 O2 Sat by Pulse 95 100 99 Oximetry 12/01/19 12/01/19 12/01/19 09:00 09:15 09:16 Temperature Pulse Rate 89 80 Pulse Rate [ Right Radial] Respiratory 17 17 Rate Blood Pressure 115/59 115/59 O2 Sat by Pulse 100 97 95 Oximetry 12/01/19 12/01/19 12/01/19 09:30 09:46 10:00 Temperature Pulse Rate 93 H 93 H 95 H Pulse Rate [ Right Radial] Respiratory 16 15 13 Rate Blood Pressure 115/59 115/59 134/68 O2 Sat by Pulse 100 99 99 Oximetry 12/01/19 12/01/19 12/01/19 10:16 10:30 10:46 Temperature Pulse Rate 87 92 H 87 Pulse Rate [ Right Radial] Respiratory 17 13 15 Rate Blood Pressure 134/68 134/68 134/68 O2 Sat by Pulse 100 100 99 Oximetry 12/01/19 12/01/19 12/01/19 11:00 11:05 11:16 Temperature Pulse Rate 89 87 94 H Pulse Rate [ Right Radial] Respiratory 15 16 Rate Blood Pressure 127/60 127/60 127/60 O2 Sat by Pulse 98 99 Oximetry 12/01/19 12/01/19 12/01/19 11:30 11:46 12:00 Temperature 98.2 F Pulse Rate 91 H 91 H 89 Pulse Rate [ Right Radial] Respiratory 15 15 16 Rate Blood Pressure 127/60 127/60 114/58 O2 Sat by Pulse 99 98 98 Oximetry 12/01/19 12/01/19 12/01/19 12:16 12:30 12:46 Temperature Pulse Rate 91 H 88 87 Pulse Rate [ Right Radial] Respiratory 19 17 17 Rate Blood Pressure 114/58 114/58 114/58 O2 Sat by Pulse 94 94 98 Oximetry 12/01/19 12/01/19 12/01/19 13:00 13:16 13:30 Temperature Pulse Rate 105 H 100 H 103 H Pulse Rate [ Right Radial] Respiratory 16 20 18 Rate Blood Pressure 116/90 116/90 O2 Sat by Pulse 98 Oximetry 12/01/19 12/01/19 12/01/19 13:46 14:00 14:16 Temperature Pulse Rate 102 H 91 H 94 H Pulse Rate [ Right Radial] Respiratory 15 17 17 Rate Blood Pressure 116/90 116/90 116/90 O2 Sat by Pulse 100 Oximetry 12/01/19 14:30 Temperature Pulse Rate 90 Pulse Rate [ Right Radial] Respiratory 17 Rate Blood Pressure 116/90 O2 Sat by Pulse 99 Oximetry - Laboratory Findings CBC and BMP: 12/01/19 10:31 11/30/19 17:21 Abnormal Lab Findings: Abnormal Labs 11/30/19 11/30/19 11/30/19 17:21 17:21 17:21 RBC 2.45 L Hgb 4.7 L* Hct 15.4 L* MCV 63 L MCH 19 L RDW 26.6 H Plt Count 455 H Seg Neuts % (Manual) 77.0 H Lymphocytes # (Manual) 1.1 L Thrombin Time 14.5 L Sodium 136 L Carbon Dioxide 20 L Glucose 140 H Iron Crossmatch 11/30/19 11/30/19 12/01/19 17:21 18:36 10:31 RBC 2.69 L Hgb 6.0 L Hct 18.2 L* MCV 68 L MCH 22 L RDW 31.3 H Plt Count Seg Neuts % (Manual) 72.0 H Lymphocytes # (Manual) Thrombin Time Sodium Carbon Dioxide Glucose Iron 16 L Crossmatch See Detail
--- NOTE | 2019-12-01 15:03 | Consultation ---
History of Present Illness Consult date: 12/01/19 Requesting physician: ARRON SANTOS Reason for consult: other (Severe Anemia (Symptomatic); Possible Acute G.I. Bleed) History of present illness: PULMONARY/CCM CONSULT NOTE (Full dictation # [id number]) Please see dictated notes for full details Past History Past Medical History: seizures, stroke, other (Moyamoya Disease) Past Surgical History: Other (Brain surgery/Vascular bypass) Social history: single, lives with family. denies: smoking, alcohol abuse, prescription drug abuse Family history: hypertension Medications and Allergies Allergies Allergy/AdvReac Type Severity Reaction Status Date / Time No Known Allergies Allergy Unverified 11/30/19 16:46 Home Medications Medication Instructions Recorded Confirmed Last Taken Type Aspirin 81 mg PO DAILY 11/30/19 11/30/19 Unknown History Keppra 1,000 mg PO BID 11/30/19 11/30/19 Unknown History amLODIPine 10 mg PO DAILY 11/30/19 11/30/19 Unknown History Active Meds: Active Medications Acetaminophen (Tylenol) 650 mg PO Q4H PRN PRN Reason: Pain, Mild (1-3) Amlodipine Besylate (Amlodipine) 10 mg PO DAILY [facility] Last Admin: 12/01/19 11:05 Dose: 10 mg Documented by: Atorvastatin Calcium (Lipitor) 40 mg PO QHS [facility] Last Admin: 11/30/19 22:28 Dose: 40 mg Documented by: Bisacodyl (Dulcolax) [address] QDAY PRN PRN Reason: Constipation Levetiracetam (Keppra) 1,000 mg PO BID [facility] Last Admin: 12/01/19 11:00 Dose: 1,000 mg Documented by: Magnesium Hydroxide (Milk Of Magnesia) 30 ml PO Q4H PRN PRN Reason: Constipation Metoclopramide HCl (Reglan) 10 mg PO Q6H PRN PRN Reason: Nausea And Vomiting Multivitamins/Minerals (Theragran-M Tab) 1 each PO QDAY [facility] Last Admin: 12/01/19 14:31 Dose: 1 each Documented by: Ondansetron HCl (Zofran) 4 mg IV Q8H PRN PRN Reason: Nausea And Vomiting Pantoprazole Sodium (Protonix) 40 mg PO QDAY [facility] Last Admin: 12/01/19 14:30 Dose: 40 mg Documented by: Promethazine HCl (Phenergan) [address] Q6H PRN PRN Reason: Nausea And Vomiting Sodium Chloride (Sodium Chloride Flush Syringe 10 Ml) 10 ml IV PRN PRN PRN Reason: LINE FLUSH Physical Examination Vital signs: Vital Signs Pulse Resp 104 H 19 11/30/19 17:15 11/30/19 17:15 Results - Laboratory Findings CBC and BMP: 12/01/19 10:31 11/30/19 17:21 PT/INR, D-dimer PT 14.4 Sec. (12.2-14.9) 11/30/19 17:21 INR 1.11 (0.87-1.13) 11/30/19 17:21 Abnormal lab findings: Abnormal Labs 11/30/19 11/30/19 11/30/19 17:21 17:21 17:21 RBC 2.45 L Hgb 4.7 L* Hct 15.4 L* MCV 63 L MCH 19 L RDW 26.6 H Plt Count 455 H Seg Neuts % (Manual) 77.0 H Lymphocytes # (Manual) 1.1 L Thrombin Time 14.5 L Sodium 136 L Carbon Dioxide 20 L Glucose 140 H Iron Crossmatch 11/30/19 11/30/19 12/01/19 17:21 18:36 10:31 RBC 2.69 L Hgb 6.0 L Hct 18.2 L* MCV 68 L MCH 22 L RDW 31.3 H Plt Count Seg Neuts % (Manual) 72.0 H Lymphocytes # (Manual) Thrombin Time Sodium Carbon Dioxide Glucose Iron 16 L Crossmatch See Detail
--- NOTE | 2019-12-01 15:08 | Consultation ---
HISTORY OF PRESENT ILLNESS: This is a 59-year-old black female that presents to [facility] with a prior history of multiple strokes, history she has severe small vessel disease. She presents with a history of being disoriented and having left-sided weakness and being in acute distress. She was brought to the hospital and initially evaluated. She had been taking aspirin, Keppra, and amlodipine. On admission, she was noted to have a high potassium of 3.7, sodium of 136, her creatinine was 0.8, glucose was 140. She was initially assessed and felt to have gastrointestinal bleeding and acute stroke. I have reviewed her CT of the head, which was done at the time of admission and she has an extremely extensive old infarct in the left hemisphere involving terminal branches of the left middle cerebral artery, rather increased over the posterior parietal occipital lobe as well as approximately over the temporal lobe. There is also white matter changes in the right hemisphere, which are more specific noted in the more superior images, also as well have reviewed her CTA of the brain, which shows multiple abnormalities being present. Vasculitis was considered and problems with diffusion were present, narrowing of the distal internal carotid arteries bilaterally were noted and persistent changes noted within the proximal portions of both right and left middle cerebral arteries. PHYSICAL EXAMINATION: Shows a black female with blood pressure 120/80. She is agitated, has difficulty following commands. She has a right hemiparesis. She has expressive aphasia. The patient has symmetrical weakness throughout, but more present on the right and left side, supple neck. No seizure activity. She appears very uncomfortable moving from side to side, appearing to be slightly agitated. The patient does not have any meningismus present. I do not notice any active seizure activity. IMPRESSION: Recurrent strokes, prior stroke of left hemisphere is quite extensive. MRA findings as noted on the study. The patient has evidence of diminished flow in both right middle cerebral arteries, would be interested in looking at the echo and doing other vascular studies to see if she has vasculitis. I would recommend checking her for intrinsic vascular factors coagulopathy at her age, this presentation is highly unusual. There is a description of the chart that she has moyamoya disease and this is a rather indiscrete entity and is more radiographic description then a discrete pathological issue and has seen variety of vasculitic lesions of the [employer]. We would recommend monitoring her condition closely, watch for seizure activity, check EEG. [facility]# [id number] CALLIE/LUNA
--- NOTE | 2019-12-01 19:04 | Consultation ---
PULMONARY CRITICAL CARE CONSULTATION CONSULTING PHYSICIAN: Dr. Arndt. REASON FOR CONSULTATION: Severe anemia, possible acute GI bleed. CHIEF COMPLAINT AND HISTORY OF PRESENT ILLNESS: The patient is a 59-year-old -N[place]alese female with past medical history significant for a diagnosis of moyamoya disease and hypertension, but also with a history of GI bleeds that according to her history appears to be upper GI bleed with melena type stools, came into the Emergency Room lethargic with limited history. Emergency medical services and family members at that time say she was in usual state of health around bedtime the previous day. Overnight, she developed left-sided weakness and the family reported slurred speech. Apparently, a stroke alert was called and Teleneurology was consulted. A CT brain suggested just chronic moyamoya disease features, but because she had already been started on a stroke protocol, she was admitted initially to the ICU. On further evaluation, she was found to have a serum hemoglobin of around 4.0. GI bleed protocol was started. She was started on IV PPI therapy and packed red blood cells were ordered. There was never any need for intubation of airway protection as far as I can tell. I am asked to assist with her management. When I stopped by to see her, she was resting and sitting up in bed. She was getting a blood transfusion at that time. She stated at this time, she has not noticed any melena. She has not had any hematemesis. She has had no hematochezia. She denied any abdominal pain. She has just noticed increasing shortness of breath and dyspnea on exertion in the preceding few days. She also noted intermittent palpitations. She denies any history of tobacco use or abuse whatsoever. She was moving all extremities. Denied any focal headaches or focal weakness. There really was as much of the history of presentation as I have. PAST MEDICAL HISTORY: Again, moyamoya disease. She has had a history of obesity. She has had seizure disorder, hypertension, history of cerebrovascular accident. She is morbidly obese. PAST SURGICAL HISTORY: She has had some surgery to her brain. MEDICATIONS: She was on at the time I stopped by to see her were reviewed. Pertinent medications include the following: Tylenol 650 mg p.o. q. 4 hours p.r.n. mild pain or fevers, amlodipine 10 mg p.o. daily, Lipitor 40 mg p.o. at bedtime, Keppra 1000 mg p.o. b.i.d., milk of magnesia 30 mg p.o. q. 4 hours p.r.n. constipation, daily multivitamin, Zofran 4 mg IV q. 8 hours p.r.n. nausea and vomiting, Protonix 40 mg p.o. daily. ALLERGIES: No known drug allergies. DIET: Obese lady. Denies acute weight loss or gain in the preceding few weeks to months. FAMILY AND SOCIAL HISTORY: Lives in the community. Denies alcohol, tobacco, illicit drug use or abuse or prescription drug use or abuse. She is single and lives with her family. REVIEW OF SYSTEMS: She had the altered mental status; however, no overt loss of consciousness. No new onset seizures. No new onset focal weakness. She denies hematochezia, hematuria or any other bleeding that she has noticed. She denies heat or cold intolerance. Denies polydipsia or polyuria. Complete 13-system review of systems obtained. Pertinent positives and/or negatives as in body of the history above, otherwise are noncontributory. PHYSICAL EXAMINATION: VITAL SIGNS: At presentation, she was afebrile, temperature 98.2 degrees Fahrenheit with a pulse of 104, respiratory rate of 19, blood pressure was 133/68, O2 sats 100% at presentation. Inspired oxygen concentration was not recorded. When I stopped by to see her, O2 sats were 98% on room air. GENERAL: She is a middle-aged obese -N[place]alese female, normocephalic, atraumatic, talking to me with full sentences without significant respiratory distress at rest. HEAD, EYES, EARS, NOSE AND THROAT: Anicteric. No conjunctival erythema. Oropharynx was moist. Mallampati #4 oropharynx. No gross jugular venous distention. She had mild oropharyngeal pallor. NECK: She had a large neck circumference. No thyromegaly. Her neck was supple. Grossly, there were no palpable lymph nodes in the supraclavicular or submandibular lymph node chains. LUNGS: Auscultation of both lung bai unremarkable. Good bilateral air movement. ABDOMEN: Soft, full, bowel sounds are positive, nontender, no palpable hepatosplenomegaly. EXTREMITIES: Without overt digital clubbing, no cyanosis, no pedal edema. Pedal pulses were 2+ bilaterally. NEUROLOGIC: Pupils are equal, round, about 3 mm, reactive to light. Extraocular muscle movements were intact. She moves all 4 extremities spontaneously. Strength was equal bilaterally about 5/5 bilaterally. SKIN: Normal turgor without overt cellulitis or rash in the areas examined. PSYCHIATRIC: Her mood was normal. Affect was appropriate. She seemed to have some trouble with memory intermittently or with speech, perhaps a little bit of a stammerer, but no major focal deficits. LABORATORY DATA: From my review are as follows: Admission white cell count 7200, hemoglobin was 4.7, hematocrit was 15.4, platelet count was 455. No significant band forms reported. INR was 1.11. Serum sodium was 136, potassium 3.7, chloride 102, bicarbonate 20, BUN 15, creatinine 0.8, glucose was 140. Troponin was within normal limits. Stool occult blood has been sent and is positive. A CT scan of her head was done. I have reviewed the radiologist's interpretation. No focal mass, hemorrhage or hydrocephalus. No acute infarcts, but they did show evidence of chronic infarctions in the cerebrum. An MRA described multiple abnormalities consistent with moyamoya disease on the MRI of the neck, also showed areas of narrowing consistent with her disease process, but that could not rule out vasculitis. ASSESSMENT: 1. Acute encephalopathy. 2. Severe symptomatic anemia. 3. History of moyamoya disease. 4. Acute gastrointestinal bleed. 5. History of seizures. 6. Hypertension. 7. Obesity. 8. Possible obstructive sleep apnea. PLAN: I believe the stroke protocol has been completed clinically that did not appear to be any focal deficits. To a large extent, her symptoms are consistent with dyspnea on exertion, fatigue related to the severe anemia. Taken her history into consideration, one would suspect this might be related to GI bleeding, which she has had in the past. I believe a GI consult has been placed and I will defer to the GI team. They have seen the patient and the tentative plan is to repeat an EGD because of the stool guaiac being positive. Records have been requested from [facility]. She is getting more packed red cells after her repeat hemoglobin came back at 6.0. She is on GI prophylaxis appropriately. DVT prophylaxis is going to be in the form of SCDs. Chronic disease medications will be resumed. Continued tobacco abstinence has been consulted. Flu and pneumonia vaccination will be addressed per protocol. Thank you very much for the consult. We will follow along and make further recommendations as picture progresses/becomes clearer. She is doing better and tentatively can be transferred out of the Intensive Care Unit. JOB# [id number] JUVENTINO/NTS
[2019-12-01 22:48] LABS: Hemoglobin 7.3 gm/dl (10.1-14.3)
[2019-12-02 04:49] LABS: Hematocrit 21.4 % (30.3-42.9); Mean Corpuscular HGB Conc 33 % (30-34); Mean Corpuscular Volume 70 fl (79-97); Platelet Count 347 K/mm3 (140-440); Red Blood Count 3.06 M/mm3 (3.65-5.03)
[2019-12-02 05:03] LABS: BUN/Creatinine Ratio 14; Blood Urea Nitrogen 13 mg/dL (7-17); Calcium 8.5 mg/dL (8.4-10.2); Hemolysis Index 0
--- NOTE | 2019-12-02 08:57 | Progress Note ---
Assessment and Plan /Gastrointestinal bleeding GI team consulted in ED, patient admitted to [facility], patient initiated on IV PPI therapy, ordered 2 units of PRBC, plan for EGd today Continue IV fluid / Moyamoya disease Follows up with Dr. Alonso at [place]. 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 Neurology consult placed, and if she does have a new stroke may need to have a second EC-IC bypass as an outpatient. She already has follow up appointments with neurology and neurosurgery. Can contact Dr. Alonso's team if needed /CVA (cerebral vascular accident), ruled out CT and CTA head and neck findings are because consistent with Moyamoya disease. Presenting symptoms most likely due to severe anemia and dehydration / Seizure disorder Continue Keppra therapy, neuro check, seizure precaution, supportive care /Morbid obesity, weight reduction diet and exercise regimen as outpatient when clinically stable / Hypertension monitor blood pressure every shift. / DVT prophylaxis Hold anticoagulation for now, SCDs to bilateral lower extremities while in bed 11/30: Completed 2 units of blood transfusion. Plan for EGD for tomorrow, continue IV fluids, to keep n.p.o. transfer to telemetry unit 12/01: Plan for EGD today, will follow result. if h/h stable possible d/c ezio rrow Brief History: 59 YO Female with Obesity, Moyamoya Disease, HTN, Seizure Disorder, CVA presents to ED for evaluation of left-sided weakness and slurred speech. EMS was notified and patient was transported to [facility] for further evaluation and care. Patient seen and evaluated in the emergency department Tele-neurology was consulted. Patient was found to have brain findings consistent with moyamoya disease, however patient admitted to [facility] for further evaluation and care due to increased risk for neurologic decompensation. Patient was also found to have a severe anemia with hemoglobin around 4. GI team consulted in ED. Patient initiated on IV PPI therapy and treated with packed red blood cell transfusion. Plan for EGD today Physical exam: GENERAL: well-developed morbidly obese -[place] female lying on bed appeared to be in no discomfort. HEENT: Normocephalic. Atraumatic. No conjunctival congestion or icterus. Patient has moist mucous membranes. NECK: Supple. Trachea midline. CHEST/LUNGS: Clear to auscultated bilaterally, breathing nonlabored. No wheezes crackles or rhonchi. HEART/CARDIOVASCULAR: Regular in rate and rhythm. S1 and S2 positive. ABDOMEN: Abdomen is soft, nontender. Patient has normal bowel sounds. SKIN: There is no rash. Warm and dry. NEURO: No focal motor deficit. Follows command. MUSCULOSKELETAL: No joint effusion or tenderness. EXTRIMITY: No edema, no cyanosis or clubbing. PSYCH: Cooperative. Subjective Date of service: 12/02/19 Interval history: Patient seen and examined. Medical records and medication list reviewed. No acute event overnight noted by the RN. Patient denies any chest pain or difficulty breathing. planned for EGD today No active bleeding, denies any hematemesis melena Discussed plan of care at bedside with patient. Objective - Constitutional Vitals: Vital Signs - 12hr 12/01/19 12/01/19 12/02/19 21:12 21:34 02:59 Temperature 98.1 F 98.9 F Pulse Rate 95 H 94 H 93 H Respiratory 18 18 Rate Blood Pressure 134/70 139/61 O2 Sat by Pulse 99 98 Oximetry 12/02/19 12/02/19 08:07 08:18 Temperature 98.0 F Pulse Rate 94 H Respiratory 18 Rate Blood Pressure 145/77 O2 Sat by Pulse 98 99 Oximetry - Labs CBC & Chem 7: 12/03/19 04:46 12/02/19 04:18 Labs: Abnormal lab results 11/30/19 12/01/19 12/01/19 Range/Units 18:36 10:31 22:10 RBC 2.69 L (3.65-5.03) M/mm3 Hgb 6.0 L 7.3 L (10.1-14.3) gm/dl Hct 18.2 L* 22.0 L (30.3-42.9) % MCV 68 L (79-97) fl MCH 22 L (28-32) pg RDW 31.3 H (13.2-15.2) % Seg Neuts % (Manual) 72.0 H (40.0-70.0) % Glucose (65-100) mg/dL Crossmatch See Detail 12/02/19 12/02/19 Range/Units 04:18 04:18 RBC 3.06 L (3.65-5.03) M/mm3 Hgb 7.0 L (10.1-14.3) gm/dl Hct 21.4 L (30.3-42.9) % MCV 70 L (79-97) fl MCH 23 L (28-32) pg RDW 29.0 H (13.2-15.2) % Seg Neuts % (Manual) (40.0-70.0) % Glucose 103 H (65-100) mg/dL Crossmatch
[2019-12-02] MEDS: PANTOPRAZOLE 40 MG TAB PO SCH ×2 (09:08→13:06)
[2019-12-02] MEDS: amLODIPine 10 MG TAB PO SCH ×2 (09:08→13:05)
[2019-12-02] MEDS: MULTIVITAMINS,THER W-MINERALS TAB PO SCH ×2 (09:09→13:06)
[2019-12-02] MEDS: levETIRAcetam 500 MG TAB PO SCH ×4 (09:09→21:16)
[2019-12-02] MEDS ORDERED: SODIUM CHLORIDE 0.9% 1000 ML 1,000 ML IV SCH (09:30)
--- NOTE | 2019-12-02 10:05 | Anesthesia Consultation ---
Anesthesia Consult and Med Hx Date of service: 12/02/19 - Airway Anesthetic Teeth Evaluation: Good ROM Head & Neck: Adequate Mental/Hyoid Distance: Adequate Mallampati Class: Class III Intubation Access Assessment: Possibly Difficult - Pulmonary Exam CTA: Yes - Cardiac Exam Cardiac Exam: RRR - Pre-Operative Health Status ASA Pre-Surgery Classification: ASA3 Proposed Anesthetic Plan: MAC - Pulmonary Hx Smoking: No Hx Respiratory Symptoms: No - Cardiovascular System Hx Hypertension: Yes Hx Heart Attack/AMI: No Hx Percutaneous Transluminal Coronary Angioplasty (PTCA): No - Central Nervous System Hx Seizures: Yes (last seizure 1 yr ago) CVA: Yes (hx CVAs 2/2 moyamoya disease) Hx Psychiatric Problems: Yes (periods of confusion this admission) - Endocrine Hx Renal Disease: No Hx Liver Disease: No Hx Insulin Dependent Diabetes: No Hx Non-Insulin Dependent Diabetes: No Hx Thyroid Disease: No - Hematic Hx Anemia: Yes (possibly 2/2 GI bleed) - Other Systems Hx Obesity: Yes (BMI 38) - Additional Comments Anesthesia Medical History Comments: Medical hx obtained from Jesus Allen (son) who also provided anesthesia consent.
[2019-12-02] MEDS ORDERED: WATER FOR IRRIG STERILE 250 ML BOTTLE IR ONE (10:48)
[2019-12-02] MEDS ORDERED: SODIUM CHLORIDE 0.9% 1000 ML 1,000 ML ONE (10:48)
[2019-12-02] MEDS ORDERED: WATER FOR IRRIG STERILE 1,000 ML BOTTLE ONE (10:48)
[2019-12-02] MEDS ORDERED: propofoL 200 MG/20 ML VIAL IV ONE (10:54)
--- NOTE | 2019-12-02 11:16 | Post Operative Note ---
Pre-op diagnosis: Acute Blood Loss Anemia Post-op diagnosis: other (Gastritis) Findings: 1. Normal duodenum 2. Erosive gastritis in antrum/body of stomach (cold bx) 3. Small hiatal hernia 4. LA Grade A erosive esophagitis, lower third Procedure: EGD with cold bx Anesthesia: MAC Surgeon: BRIEN LEON Estimated blood loss: minimal Pathology: list (1. Gastric antrum/gastritis) Specimen disposition: to lab Condition: stable Disposition: floor (Recs: 1. Daily protonix/MVI. 2. OK to resume daily diet. 3. OK to advance diet and d/c home if hct stable. 4. Patient to f/u with PCP at [place] and consider repeat colonoscopy +/- capsule endoscopy (colonoscopy negative last year per the son).)
--- NOTE | 2019-12-02 11:21 | Post Anesthesia Evaluation ---
- Post Anesthesia Evaluation Patient Participated: Yes Airway Patent: Yes Stable Respiratory Function: Yes Nausea/Vomiting: No Temp > 96.8F: Yes Pain Manageable: Yes Adequeate Hydration: Yes Anesthesia Complications: No
--- NOTE | 2019-12-02 11:21 | Anesthesia Day of Surgery ---
Anesthesia Day of Surgery - Day of Surgery Patient Examined: Yes Patient H&P Reviewed: Yes Patient is NPO: Yes
--- NOTE | 2019-12-02 11:28 | Operative Report ---
PROCEDURE PERFORMED: Esophagogastroduodenoscopy with cold biopsy. PREOPERATIVE DIAGNOSIS: Acute blood loss anemia. POSTOPERATIVE DIAGNOSES: Gastritis, esophagitis, hiatal hernia. ENDOSCOPIST: Chava Dobbs MD INSTRUMENT: Olympus video endoscope. MEDICATIONS: MAC anesthesia by [facility]hesia [facility]. COMPLICATIONS: No apparent complications. ESTIMATED BLOOD LOSS: Minimal. SPECIMENS: Gastric antrum, rule out gastritis. IMPLANTS: None. ASSISTANTS: None. CONDITION AT COMPLETION: Stable. TECHNIQUE: The patient's son was informed of the risks and benefits of the procedure due to the patient's chronic underlying neurologic state. After informed consent was obtained, the patient was placed in the left lateral decubitus position. The above sedative medications were given. Her vital signs remained stable throughout the procedure. The instrument was advanced from the mouth to the second portion of the duodenum under direct visualization. At that point, the bowel was insufflated and the endoscope was slowly withdrawn. FINDINGS: 1. Normal appearing duodenum. 2. Erosive gastritis in the antrum and body of the stomach; cold biopsy was taken to rule out H. pylori. 3. Small hiatal hernia. 4. LA grade A erosive esophagitis, in the lower third. RECOMMENDATIONS: 1. Daily Protonix and multivitamin therapy. 2. Okay to resume daily aspirin. 3. Okay to advance diet and discharge home if the hematocrit is stable. 4. The patient is to follow up with her primary care at [facility] and consider a repeat colonoscopy and possibly capsule endoscopy; her colonoscopy was negative last year, per the son. JOB# [id number] KARTHIK/NTS
--- NOTE | 2019-12-02 13:40 | Progress Note ---
Assessment and Plan Acute toxic-metabolic encephalopathy Gastrointestinal bleeding s/p EGD Severe anemia s/p PRBC Moyamoya disease CVA (cerebral vascular accident), ruled out Morbid obesity -Supportive transfusions to keep HgB >7g/dL -Iron studies, add hematinics with bowel regimen -Monitor H and H -Therapeutic PPI - Continue chronic home medications as indicated -Increase activity -SCDs and early activity for VTE prophylaxis -Seizure precautions -Continue all supportive care Discussed with primary service Discharge planning if stable hemoglobin Subjective Date of service: 12/02/19 Interval history: Follow up fro Acute toxic-metabolic encephalopathy; Severe anemia: Moyamoya disease; Morbid obesity Seen and examined. Vitals, labs, medications, chart reviewed. No adverse overnight events reported by RN. s/p EGD;s/p PRBCs Sitting up in a chair, off supplemental oxygen, tolerating diet. Denies any chest pain, no shortness of breath, no fevers or chills, no diarrhea, nausea or vomiting Objective Vital Signs - 12hr 12/02/19 12/02/19 12/02/19 02:59 08:07 08:18 Temperature 98.9 F 98.0 F Pulse Rate 93 H 94 H Respiratory 18 18 Rate Blood Pressure 139/61 145/77 O2 Sat by Pulse 98 98 99 Oximetry 12/02/19 12/02/19 12/02/19 10:00 10:36 11:13 Temperature 98.2 F 98.3 F Pulse Rate 89 98 H 85 Respiratory 15 12 Rate Blood Pressure 149/73 125/61 O2 Sat by Pulse 98 100 Oximetry 12/02/19 12/02/19 12/02/19 11:30 11:45 12:29 Temperature 98.6 F Pulse Rate 66 90 99 H Respiratory 12 14 18 Rate Blood Pressure 139/66 144/75 142/71 O2 Sat by Pulse 100 98 100 Oximetry Constitutional: no acute distress, alert, other (sitting up in a chair, in no acute distress) Eyes: non-icteric ENT: oropharynx moist Neck: supple, no lymphadenopathy, no JVD Effort: normal Ascultation: Bilateral: clear, diminished breath sounds Cardiovascular: regular rate and rhythm, other (S1,S2, no murmurs) Gastrointestinal: normoactive bowel sounds, soft, non-tender, non-distended Integumentary: normal Extremities: no cyanosis, no edema Neurologic: non-focal exam, pupils equal and round Psychiatric: mood appropriate, affect normal CBC and BMP: 12/02/19 04:18 12/02/19 04:18 ABG, PT/INR, D-dimer: PT/INR, D-dimer PT 14.4 Sec. (12.2-14.9) 11/30/19 17:21 INR 1.11 (0.87-1.13) 11/30/19 17:21 Abnormal lab findings: Abnormal Labs 11/30/19 11/30/19 11/30/19 17:21 17:21 17:21 RBC 2.45 L Hgb 4.7 L* Hct 15.4 L* MCV 63 L MCH 19 L RDW 26.6 H Plt Count 455 H Seg Neuts % (Manual) 77.0 H Lymphocytes # (Manual) 1.1 L Thrombin Time 14.5 L Sodium 136 L Carbon Dioxide 20 L Glucose 140 H Iron Crossmatch 11/30/19 11/30/19 12/01/19 17:21 18:36 10:31 RBC 2.69 L Hgb 6.0 L Hct 18.2 L* MCV 68 L MCH 22 L RDW 31.3 H Plt Count Seg Neuts % (Manual) 72.0 H Lymphocytes # (Manual) Thrombin Time Sodium Carbon Dioxide Glucose Iron 16 L Crossmatch See Detail 12/01/19 12/02/19 12/02/19 22:10 04:18 04:18 RBC 3.06 L Hgb 7.3 L 7.0 L Hct 22.0 L 21.4 L MCV 70 L MCH 23 L RDW 29.0 H Plt Count Seg Neuts % (Manual) Lymphocytes # (Manual) Thrombin Time Sodium Carbon Dioxide Glucose 103 H Iron Crossmatch Allied health notes reviewed: nursing
[2019-12-02 13:51] LABS: LDL Cholesterol,Direct 4 mg/dL (50-130)
[2019-12-02 14:00] LABS: HDL Cholesterol < 3 mg/dL (40-59)
--- NOTE | 2019-12-02 14:03 | Progress Note ---
Subjective Date of service: 12/02/19 Interval history: went over the notes from gi and spoke to Dr. Valerio doubt new stroke suspect underlying small vessel disease check STARR Objective - Vital Sign Vital Signs - 12hr 12/02/19 12/02/19 12/02/19 02:59 08:07 08:18 Temperature 98.9 F 98.0 F Pulse Rate 93 H 94 H Respiratory 18 18 Rate Blood Pressure 139/61 145/77 O2 Sat by Pulse 98 98 99 Oximetry 12/02/19 12/02/19 12/02/19 10:00 10:36 11:13 Temperature 98.2 F 98.3 F Pulse Rate 89 98 H 85 Respiratory 15 12 Rate Blood Pressure 149/73 125/61 O2 Sat by Pulse 98 100 Oximetry 12/02/19 12/02/19 12/02/19 11:30 11:45 12:29 Temperature 98.6 F Pulse Rate 66 90 99 H Respiratory 12 14 18 Rate Blood Pressure 139/66 144/75 142/71 O2 Sat by Pulse 100 98 100 Oximetry - Laboratory Findings CBC and BMP: 12/02/19 04:18 12/02/19 04:18 Abnormal Lab Findings: Abnormal Labs 11/30/19 11/30/19 11/30/19 17:21 17:21 17:21 RBC 2.45 L Hgb 4.7 L* Hct 15.4 L* MCV 63 L MCH 19 L RDW 26.6 H Plt Count 455 H Seg Neuts % (Manual) 77.0 H Lymphocytes # (Manual) 1.1 L Thrombin Time 14.5 L Sodium 136 L Carbon Dioxide 20 L Glucose 140 H Iron Cholesterol LDL Cholesterol Direct HDL Cholesterol Crossmatch 11/30/19 11/30/19 12/01/19 17:21 18:36 10:31 RBC 2.69 L Hgb 6.0 L Hct 18.2 L* MCV 68 L MCH 22 L RDW 31.3 H Plt Count Seg Neuts % (Manual) 72.0 H Lymphocytes # (Manual) Thrombin Time Sodium Carbon Dioxide Glucose Iron 16 L Cholesterol LDL Cholesterol Direct HDL Cholesterol Crossmatch See Detail 12/01/19 12/02/19 12/02/19 22:10 04:18 04:18 RBC 3.06 L Hgb 7.3 L 7.0 L Hct 22.0 L 21.4 L MCV 70 L MCH 23 L RDW 29.0 H Plt Count Seg Neuts % (Manual) Lymphocytes # (Manual) Thrombin Time Sodium Carbon Dioxide Glucose 103 H Iron Cholesterol LDL Cholesterol Direct HDL Cholesterol Crossmatch 12/02/19 04:18 RBC Hgb Hct MCV MCH RDW Plt Count Seg Neuts % (Manual) Lymphocytes # (Manual) Thrombin Time Sodium Carbon Dioxide Glucose Iron Cholesterol < 4 L LDL Cholesterol Direct 4 L HDL Cholesterol < 3 L Crossmatch
[2019-12-03 05:26] LABS: Hematocrit 22.5 % (30.3-42.9); Hemoglobin 7.1 gm/dl (10.1-14.3)
[2019-12-03 08:13] VITALS: BP 128/47
[2019-12-03] MEDS ORDERED: ASPIRIN EC 81 MG TAB PO SCH (10:00)
[2019-12-03] MEDS: amLODIPine 10 MG TAB PO SCH (11:21)
[2019-12-03] MEDS: PANTOPRAZOLE 40 MG TAB PO SCH (11:21)
[2019-12-03] MEDS: MULTIVITAMINS,THER W-MINERALS TAB PO SCH (11:21)
[2019-12-03] MEDS: levETIRAcetam 500 MG TAB PO SCH (11:21)
--- NOTE | 2019-12-03 12:32 | Discharge Summary ---
Providers - Providers Date of Admission: 12/01/19 02:32 Date of discharge: 12/03/19 Attending physician: ARRON SANTOS 11/30/19 17:24 Speech Therapy Evaluation and Treat [CONS] Stat Reason For Exam: neuro deficit 11/30/19 18:46 Consult to Physician [CONS] Stat Comment: Consulting Provider: BRIEN LEON Physician Instructions: Reason For Exam: GI bleed 11/30/19 19:19 Occupational Therapy Evaluate and Treat [CONS] Routine Comment: Reason For Exam: Neuro deficits Physical Therapy Evaluation and Treat [CONS] Routine Comment: Reason For Exam: Neuro deficits 11/30/19 20:10 Consult to Physician [CONS] Routine Comment: Consulting Provider: MICHEAL SHELDON Physician Instructions: Reason For Exam: CVA 12/01/19 08:19 Consult to Physician [CONS] Urgent Comment: Consulting Provider: MELANIE GAO Physician Instructions: Reason For Exam: critical care management Primary care physician: ASSISTANT FINANCE DIRECTOR Hospitalization Condition: Stable Pertinent studies: Head CT, head/neck CTA Hospital course: 59 YO Female with Obesity, Moyamoya Disease, HTN, Seizure Disorder, CVA presents to ED for evaluation of left-sided weakness and slurred speech. EMS was notified and patient was transported to [facility] for further evaluation and care. Patient seen and evaluated in the emergency department Tele-neurology was consulted. Patient was found to have brain findings consistent with moyamoya disease, however patient admitted to [facility] for further evaluation and care due to increased risk for neurologic decompensation. Patient was also found to have a severe anemia with hemoglobin around 4. GI team consulted in ED. Patient initiated on IV PPI therapy and treated with packed red blood cell transfusion. s/p EGD showed Normal duodenum with Erosive gastritis in antrum/body of stomach (cold bx) and LA Grade A erosive esophagitis, lower third. GI recommended daily PPI. Patient was tolerating regular diet, her symptoms resolved, H&H was stable. Patient was then discharged home with outpatient follow-up. Discharge diagnosis and Mx: /Gastrointestinal bleeding GI team consulted in ED, patient admitted to [facility], patient initiated on IV PPI therapy, s/p 2 units of PRBC, s/p EGd Findings: 1. Normal duodenum 2. Erosive gastritis in antrum/body of stomach (cold bx) 3. Small hiatal hernia 4. LA Grade A erosive esophagitis, lower third GI recommended to discharge home with PPI and to follow-up outpatient at [place] / Moyamoya disease Follows up with Dr. Alonso at [place]. 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 Neurology consult placed, and if she does have a new stroke may need to have a second EC-IC bypass as an outpatient. She already has follow up appointments with neurology and neurosurgery. /CVA (cerebral vascular accident), ruled out CT and CTA head and neck findings are because consistent with Moyamoya disease. Presenting symptoms most likely due to severe anemia and dehydration / Seizure disorder Managed with Keppra therapy, neuro check, seizure precaution, supportive care /Morbid obesity, weight reduction diet and exercise regimen as outpatient when clinically stable / Hypertension monitored blood pressure every shift. / DVT prophylaxis SCDs to bilateral lower extremities while in bed Physical exam: GENERAL: well-developed morbidly obese -Thai female lying on bed appeared to be in no discomfort. HEENT: Normocephalic. Atraumatic. No conjunctival congestion or icterus. Patient has moist mucous membranes. NECK: Supple. Trachea midline. CHEST/LUNGS: Clear to auscultated bilaterally, breathing nonlabored. No wheezes crackles or rhonchi. HEART/CARDIOVASCULAR: Regular in rate and rhythm. S1 and S2 positive. ABDOMEN: Abdomen is soft, nontender. Patient has normal bowel sounds. SKIN: There is no rash. Warm and dry. NEURO: No focal motor deficit. Follows command. MUSCULOSKELETAL: No joint effusion or tenderness. EXTRIMITY: No edema, no cyanosis or clubbing. PSYCH: Cooperative. Disposition: DC-01 TO HOME OR SELFCARE Time spent for discharge: 34 minutes Core Measure Documentation - Palliative Care Palliative Care/ Comfort Measures: Not Applicable - Core Measures Any of the following diagnoses?: history only Exam - Constitutional Vitals: Temp Pulse Resp BP Pulse Ox 98.1 F 68 18 128/47 100 12/03/19 07:20 12/03/19 07:20 12/03/19 07:20 12/03/19 07:20 12/03/19 07:20 Plan Activity: advance as tolerated Weight Bearing Status: Weight Bear as Tolerated Diet: low fat, low salt Additional Instructions: Follow-up at [facility] in 1 week Follow up with: PRIMARY CARE, [Primary Care Provider] - 3-5 Days Prescriptions: Pantoprazole [Protonix TAB] 40 mg PO QDAY #30 tablet
[2019-12-05 22:59] LABS: ANA Screen, IFA Negative (Negative)
== END 2019-12-03 14:57 | disposition home or self-care (01) | DRG 380 ==
LOC: ED 16:45 → IMCU 19:19 → UNDOADMIN 19:19 → CC1 12-01 02:32 → 4A 12-01 21:12
PROVIDERS: ADMIT Internal Medicine; ATTEND Internal Medicine
PROC: 30233N1 Transfusion of Nonautologous Red Blood Cells into Peripheral Vein, Percutaneous Approach (ICD-10-PCS; 2019-11-30)
PROC: 0DB68ZX Excision of Stomach, Via Natural or Artificial Opening Endoscopic, Diagnostic (ICD-10-PCS; principal; 2019-12-02)
DX: K22.11 Ulcer of esophagus with bleeding (principal); G92 Toxic encephalopathy; I67.5 Moyamoya disease; D62 Acute posthemorrhagic anemia; K29.01 Acute gastritis with bleeding; I10 Essential (primary) hypertension; G40.909 Epilepsy, unspecified, not intractable, without status epilepticus; K44.9 Diaphragmatic hernia without obstruction or gangrene; E86.0 Dehydration; E66.01 Morbid (severe) obesity due to excess calories; Z82.49 Family history of ischemic heart disease and other diseases of the circulatory system; Z68.38 Body mass index [BMI] 38.0-38.9, adult; Z79.82 Long term (current) use of aspirin; Z79.899 Other long term (current) drug therapy
CPT/HCPCS: 36415; 70450; 70496; 70498; 80048; 80061; 82270; 83540; 84484; 85007; 85014; 85018; 85025; 85027; 85610; 85670; 85730; 86038; 86850; 86900; 86901; 86920; 87641; 88305; 88342; 93005; 93010; 93306; G0378; A9270-GY; C9113; J2704; J7030; J7040; P9016; Q9967